=== PATIENT | female | born 1955 | race Caucasian/White ===

== ENCOUNTER 2023-12-22 15:57 | Emergency (ER) | payer MEDICARE, SELFPAY ==
[2023-12-22 16:02] VITALS: BP 136/100
[2023-12-22] MEDS: DIFLUCAN 150 MG PO (17:40)
--- NOTE | 2023-12-22 23:05 | ED.GENMED ---
History of Present Illness
General
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
Source: patient
Exam Limitations: none
Time Seen by Provider: 12/22/23 16:20
Nursing documentation reviewed up to this point in time: agreed with
Travel History
Have you had any contact with someone who has COVID-19?: No
Do you have any symptoms of coronavirus? Fever > 100 degrees, chills, cough, shortness of breath, sore throat, loss of taste or smell, muscle aches, or headache?: No
History of Present Illness
History of Present Illness:
Patient to ED with complaint of vaginal discharge, itching and burning. Brought self to ED for eval.
Past History
Past History
ED Past Medical History: Cancer (Thyroid), IDDM, Psychiatric (Anxiety, depression) and Other (Pancreatitis)
ED Past Surgical History: Cholecystectomy and Other (Breast augmentation)
Social History
Tobacco: Non-smoker
Alcohol: Occasional
Drug: None
Living: with family
Employment: Employed
Family History
Family History: Hypertension
Review of Systems
Review of Systems
Allergies reviewed?: Yes
All Other Systems: ROS reviewed and negative except as documented in HPI and ROS
Constitutional: Reports no symptoms
EENT: Reports no symptoms
Respiratory: Reports no symptoms
Cardiac: Reports no symptoms
ABD/GI: Reports no symptoms
: Reports discharge
Musculoskeletal: Reports no symptoms
Skin: Reports no symptoms
Neurological: Reports no symptoms
Psychiatric: Reports no symptoms
Phy Exam
General Physical Exam
General Presentation: well appearing and no apparent distress
General age: appears stated age
General Skin: warm and dry
General Habitus: normal
General Mental: alert
General Hydration: appears well hydrated
Gastrointestinal Exam
Gastrointestinal Exam: normal bowel sounds, non tender, soft and no organomegaly
Genitourinary Exam Female
Exam Female: no bleeding, no CMT, no lesions, no mass and vaginal discharge
Vaginal Exam: normal
Vaginal Bleeding: none
Vaginal Discharge: creamy
Visual exam of cervix: os closed
Musculoskeletal Exam
Musculoskeletal Exam: full ROM and neuro vasc intact
Skin Exam
Skin Exam: normal color and warm/dry
Psychiatric Exam
Psychiatric Exam: normal mood/affect
Course
Orders/Labs/Results
Orders:
Orders
12/22/23 17:32
Fluconazole [Diflucan] 150 mg PO NOW STA
12/22/23 17:36
Genital Culture Urgent
IZZY Source: Vagina
Specimen Description:
Date Specimen was Collected: 12/22/23
Time Specimen was Collected: 17:29
Vital Signs
Initial and Last Documented VS:
Initial Vital Signs
Temp Pulse Resp BP Pulse Ox
99.0 F 111 17 136/100 99
12/22/23 16:02 12/22/23 16:02 12/22/23 16:02 12/22/23 16:02 12/22/23 16:02
Last Documented Vital Signs
Temp Pulse Resp BP Pulse Ox
99.0 F 111 17 136/100 99
12/22/23 16:02 12/22/23 16:02 12/22/23 16:02 12/22/23 16:02 12/22/23 16:02
*Critical Care Note
Total Time (30-74mins, 75-104mins- exclusive of procedures): Not Applicable
Update Note
Update Note:
Suspect yeast infection. Given dose of diflucan in dept, will repeat in 3 days. 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 Given instructions for s/s to return to ED
ED Attending Note
-
Portions of this chart may have been created with voice recognition software.� Occasional wrong word or��sound alike� substitutions may have occurred due to the inherent limitations of voice recognition software.
Discharge Plan
Departure
Patient Disposition: Home (Routine Discharge)
Date of Disposition: 12/22/23
Time of Disposition: 17:07
Patient with high blood pressure during this ER visit?: No
Condition: Good
Covid-19: Not Applicable
Discharge Problem:
Candidiasis of vagina
Instructions: Yeast Infection (DC)
Prescriptions:
New
fluconazole 150 mg tablet
150 mg PO Q3D Qty: 1 0RF
No Action
cyclobenzaprine 10 mg tablet
10 mg PO Q8H PRN (Reason: muscle spasms)
clonazepam 0.5 mg tablet
1 mg PO HS
Patient Comments:
05/02/2023: last filled 04/04/23, 60 tabs for 30 days from
Rx Instructions:
Prescribed as '0.5mg BID prn'
hydrocodone-acetaminophen 10-325 mg tablet
2 tab PO BID
Patient Comments:
05/02/2023: last filled 04/23/23, 120 tabs for 30 days from [facility]
Rx Instructions:
Prescribed as 'take 1 tab q6h prn'
liothyronine 5 mcg tablet
5 mcg PO DAILY
levothyroxine 150 mcg tablet
150 mcg PO DAILY
fenofibrate 160 mg tablet
160 mg PO HS
Jardiance 25 mg tablet
25 mg PO DAILY
Linzess 72 mcg capsule
72 mcg PO DAILY
Ozempic 2 mg/dose (8 mg/3 mL) pen injector
8 mg SC ASENCIO
Referrals:
Rafaela Sims DO [Active] - Next open appointment
Interventions
Interventions:
*Risk Screen - Suicide Last Done: 12/22/23 17:28
*General Assessment Last Done: 12/22/23 17:26
*Neglect/Abuse Screening Last Done: 12/22/23 17:26
*Nursing Disposition Last Done: 12/22/23 17:42
ED-Female Genitourinary Assessment Last Done: 12/22/23 17:26
Discharge Date and Time
Discharge Date/Time: 12/22/23 17:42
Print Language: MACANESE
== END 2023-12-22 17:42 | disposition home or self-care (01) ==
LOC: EMR 15:57
PROVIDERS: EMERGENCY PHYSICIAN Emergency Medicine; FAMILY PHYSICIAN Internal Medicine
DX: B37.31 Acute candidiasis of vulva and vagina (principal)
CPT/HCPCS: 99283; 87070

== ENCOUNTER → 2024-02-12 09:44 | Outpatient (REF) | payer MEDICARE, SELFPAY | LOC: WDC 09:44 | PROVIDERS: ATTENDING PHYSICIAN Advanced Practice Midwife; FAMILY PHYSICIAN Internal Medicine | DX: N64.4 Mastodynia (principal); N63.20 Unspecified lump in the left breast, unspecified quadrant; Z85.3 Personal history of malignant neoplasm of breast; N63.11 Unspecified lump in the right breast, upper outer quadrant; N63.22 Unspecified lump in the left breast, upper inner quadrant | CPT/HCPCS: 76642; 77062; 77066 ==

== ENCOUNTER 2024-12-08 17:21 | Emergency (ER) | payer MEDICARE, SELFPAY ==
[2024-12-08 17:25] VITALS: BP 114/80
--- NOTE | 2024-12-08 19:44 | ED.GENMED ---
History of Present Illness
General
Chief Complaint: Esophageal Problem
Source: patient
Exam Limitations: none
Time Seen by Provider: 12/08/24 19:22
Nursing documentation reviewed up to this point in time: agreed with
History of Present Illness
History of Present Illness:
Patient is a 69-year-old female with history of independent diabetes, cardiac stents reflux presents to the ER for evaluation. Patient was eating rice prior to arrival and after her second bite felt like he got' stuck' in her esophagus. Patient
tried to drink a diet Coke but reports that made it worse. She is however able to drink water since. She complains of some discomfort in her epigastric area. She denies any abdominal pain or vomiting. No associated shortness of breath or actual
chest pain.
Past History
Past History
ED Past Medical History: Cancer (Thyroid), IDDM, Psychiatric (Anxiety, depression) and Other (Pancreatitis)
ED Past Surgical History: Cholecystectomy and Other (Breast augmentation)
Social History
Tobacco: Non-smoker
Alcohol: Occasional
Drug: None
Living: with family
Employment: Employed
Family History
Family History: Hypertension
Review of Systems
Review of Systems
Allergies reviewed?: Yes
All Other Systems: ROS reviewed and negative except as documented in HPI and ROS
Constitutional: Reports no symptoms
EENT: Reports no symptoms
Respiratory: Reports no symptoms
Cardiac: Reports no symptoms
ABD/GI: Reports other (+discomfort in epigastric region )
: Reports no symptoms
Musculoskeletal: Reports no symptoms
Skin: Reports no symptoms
Neurological: Reports no symptoms
Psychiatric: Reports no symptoms
Phy Exam
General Physical Exam
General Presentation: no apparent distress
General age: appears stated age
General Skin: warm and dry
General Habitus: normal
General Mental: alert
ENT Exam
ENT Exam: other (No drooling tolerating secretions well)
Cardiovascular Exam
Cardiovascular Exam: regular rate/rhythm, no murmur and normal peripheral pulses
Pulmonary Exam
Pulmonary Exam: lungs clear and no respiratory distress
Gastrointestinal Exam
Gastrointestinal Exam: non tender and soft
Neurological Exam
Neurological Exam: alert and oriented x3
Musculoskeletal Exam
Musculoskeletal Exam: full ROM
Skin Exam
Skin Exam: normal color and warm/dry
Psychiatric Exam
Psychiatric Exam: normal mood/affect
Course
Orders/Labs/Results
Orders:
Orders
12/08/24 19:44
Mag Hydrox/Al Hydrox/Simeth [Maalox] 30 ml Phenobarb/Hyoscy/Atropine/Scop [] 10 ml PO NOW
12/08/24 19:45
Electrocardiogram (*1) Stat
Reason for Study: Other
Other Reason for Exam: chest pain
EKG- Treatment ONCE
12/08/24 19:47
Mag Hydrox/Al Hydrox/Simeth [Maalox] 30 ml .ROUTE .STK-MED ONE
Phenobarb/Hyoscy/Atropine/Scop [] 10 ml .ROUTE .STK-MED ONE
12/08/24 21:51
Sucralfate Suspension [Carafate Suspension] 1 gm .ROUTE .STK-MED ONE
12/08/24 21:52
Sucralfate Suspension [Carafate Suspension] 1 gm PO NOW STA
Vital Signs
Initial and Last Documented VS:
Initial Vital Signs
Temp Pulse Resp BP Pulse Ox
98.1 F 86 20 114/80 97
12/08/24 17:25 12/08/24 17:25 12/08/24 17:25 12/08/24 17:25 12/08/24 17:25
Last Documented Vital Signs
Temp Pulse Resp BP Pulse Ox
98.1 F 82 14 112/76 99
12/08/24 17:25 12/08/24 21:16 12/08/24 21:16 12/08/24 21:16 12/08/24 21:16
Lockstitch Lining Setter consulted with Physician
Lockstitch Lining Setter consulted with physician?: Yes
Name of Physician Consulted: Unique
MDM/Problems Addressed
Differential Diagnosis Includes:
not limited to:
Esophagitis reflux less likely food bolus
MDM/Problems Addressed:
Symptoms are consistent with esophagitis. Patient describes eating rice and then felt very irritated in her esophagus epigastric region. She has been able to drink fluids and has eaten solid foods here in the ER. She initially was given a GI
cocktail however this did not seem to help as much. She was then given Carafate and expressed much relief with that. She is ready to go home and is no acute distress. Discussed soft bland diet for the next several days and then outpatient follow
family doctor and GI as needed.
*Pulse Oximetry
Patient hypoxic: no
*Critical Care Note
Total Time (30-74mins, 75-104mins- exclusive of procedures): Not Applicable
ED Attending Note
-
Portions of this chart may have been created with voice recognition software.� Occasional wrong word or��sound alike� substitutions may have occurred due to the inherent limitations of voice recognition software.
Discharge Plan
Departure
Patient Disposition: Home (Routine Discharge)
Date of Disposition: 12/08/24
Time of Disposition: 22:11
Patient with high blood pressure during this ER visit?: No
Covid-19: Not Applicable
Discharge Problem:
Esophagitis
Instructions: Clear Liquid Diet, Esophagitis
Prescriptions:
New
pantoprazole [Protonix] 40 mg tablet,delayed release (DR/EC)
40 mg PO DAILY Qty: 14 0RF
No Action
cyclobenzaprine 10 mg tablet
10 mg PO Q8H PRN (Reason: muscle spasms)
clonazepam 0.5 mg tablet
1 mg PO HS
Patient Comments:
05/02/2023: last filled 04/04/23, 60 tabs for 30 days from
Rx Instructions:
Prescribed as '0.5mg BID prn'
hydrocodone-acetaminophen 10-325 mg tablet
2 tab PO BID
Patient Comments:
05/02/2023: last filled 04/23/23, 120 tabs for 30 days from [facility]
Rx Instructions:
Prescribed as 'take 1 tab q6h prn'
liothyronine 5 mcg tablet
5 mcg PO DAILY
levothyroxine 150 mcg tablet
150 mcg PO DAILY
fenofibrate 160 mg tablet
160 mg PO HS
Jardiance 25 mg tablet
25 mg PO DAILY
Linzess 72 mcg capsule
72 mcg PO DAILY
Ozempic 2 mg/dose (8 mg/3 mL) pen injector
8 mg SC ASENCIO
fluconazole 150 mg tablet
150 mg PO Q3D Qty: 1 0RF
Referrals:
Everardo Marlow MD [Family Provider] -
Lupe Kramer DO [Active] -
Activity Restrictions/Additional Instructions:
As discussed you may try clear fluids for the next 24 hours followed by bland solid foods.
A prescription for Protonix was sent to your pharmacy. Follow-up with your family doctor the next several days and return if any worsening of symptoms
You may follow-up with GI as needed
Interventions
Interventions:
*Risk Screen - Suicide Last Done: 12/08/24 17:25
*General Assessment Last Done: 12/08/24 21:13
*Neglect/Abuse Screening Last Done: 12/08/24 21:13
*ED- Fall Risk Assessment Last Done: 12/08/24 21:13
EK-Lwipjq-Tspilaibta Assessment Last Done: 12/08/24 19:52
Discharge Date and Time
Print Language: KOREAN
[2024-12-08] MEDS: MAALOX 40 PO (19:49)
[2024-12-08 19:51] VITALS: BMI 21.3
[2024-12-08 21:16] VITALS: BP 112/76
[2024-12-08] MEDS: CARAFATE SUSPENSION 1 GM PO (21:52)
== END 2024-12-08 22:23 | disposition home or self-care (01) ==
LOC: EMR 17:21
PROVIDERS: EMERGENCY PHYSICIAN Emergency Medicine; FAMILY PHYSICIAN Internal Medicine
DX: K20.90 Esophagitis, unspecified without bleeding (principal); E11.9 Type 2 diabetes mellitus without complications; Z79.4 Long term (current) use of insulin; Z90.49 Acquired absence of other specified parts of digestive tract
CPT/HCPCS: 99283; 93005

== ENCOUNTER 2025-01-26 03:54 | Emergency (ER) | payer MEDICARE, SELFPAY ==
[2025-01-26 04:04] VITALS: BP 135/84
[2025-01-26 04:31] VITALS: BP 135/97
[2025-01-26 04:41] VITALS: BMI 23.8
--- NOTE | 2025-01-26 04:49 | ED.GENMED ---
History of Present Illness
General
Chief Complaint: Chest Pain
Source: patient
Exam Limitations: none
Time Seen by Provider: 01/26/25 04:48
History of Present Illness
History of Present Illness:
69-year-old female with a past medical history of insulin-dependent diabetes, hyperlipidemia, anxiety, depression, chronic pain from Lyme disease, presents emergency department today with concerns of intermittent left-sided chest pressure and
exertional shortness of breath. Patient reports that this started 2 weeks ago. She denies any recent long distance travel or redness or pain in her lower extremities. She reports that the pain does get worse when she takes a deep breath. She has
a distant history of thyroid and breast cancer. She never had symptoms like this before. Of note, patient reports that with her chronic pain, she takes multiple tablets of Vicodin daily and reports that her left extremity pain has gotten worse but
this is not unusual for her. She also notes upper back pain. She reports that the pain improved with lidocaine patches. She does have a history of coronary artery disease and has stents placed in the past after a cardiac MRI revealed significant
coronary disease. She never had a heart attack. She states that this pain is different than the pain she had when she had her stents placed. She denies any syncopal episodes. She denies any dizziness lightheadedness.
Past History
Past History
ED Past Medical History: Cancer (Thyroid), IDDM, Psychiatric (Anxiety, depression) and Other (Pancreatitis)
ED Past Surgical History: Cholecystectomy and Other (Breast augmentation)
Social History
Tobacco: Non-smoker
Alcohol: Occasional
Drug: None
Living: with family
Employment: Employed
Family History
Family History: Hypertension
Review of Systems
Review of Systems
All Other Systems: ROS reviewed and negative except as documented in HPI and ROS
Phy Exam
Physical Exam
Physical Exam:
General: Patient is well appearing and in no acute distress; non-toxic
Skin: Warm and dry, no rashes or lesions
Head: Normocephalic, atraumatic
Eyes: Sclera non-icteric. EOMs intact.
Cardiac: Regular rate and rhythm, mild tenderness noted to the left rib area
Peripheral Vascular: No lower extremity swelling or edema
Pulm: Normal respiratory effort, no wheezes, rales, or rhonchi
Abdomen: No abdominal tenderness to palpation
Musculoskeletal: Left-sided para thoracic tenderness noted no midline spinal tenderness, no tenderness palpation of the left upper extremity
Neuro: CN II-XII intact, no focal neurologic deficits.
Psychiatric: Appropriate mood and affect.
Scores
Heart Score for Chest Pain Patients
STEMI patient?: No
History: Slightly or Non-Suspicious
ECG: Normal
Age: >/= 65 years
Risk Factors: >/= 3 Risk Factors or History of CAD
Troponin: </= Normal Limit
Heart Score for Chest Pain Patients: 4
Heart Score Risk: 20.3% MACE over next 6 weeks
Course
Orders/Labs/Results
Orders:
Orders
01/26/25 03:55
EKG [Electrocardiogram (*1)] Urgent
Reason for Study: Chest Pain
EKG- Treatment ONCE
01/26/25 04:49
CMP [Comprehensive Metabolic Panel] Urgent
Complete Blood Count/With Diff Urgent
01/26/25 05:16
CR Chest - 2 Views Urgent
Comment:
Reason For Exam: shortness of breath, left sided chest pain
01/26/25 05:24
Lidocaine [Lidocaine 4% Patch] 1 patch TOPICAL DAILY ONE
Apply Lidocaine patch(s) to:: left upper parathoracic
01/26/25 06:29
D-Dimer Urgent
Troponin I Urgent
Abnormal Lab Results
01/26/25
04:49
WBC 3.9 L 10^3/uL
(4.8-10.8)
Hct 36.8 L %
(37.0-47.0)
MPV 10.5 H fL
(7.4-10.4)
BUN 18 H mg/dl
(7-17)
Glucose 142 H mg/dl
(70-99)
01/26/25 04:49
01/26/25 04:49
Vital Signs
Initial and Last Documented VS:
Initial Vital Signs
Temp Pulse Resp BP Pulse Ox
98.3 F 86 16 135/84 100
01/26/25 04:04 01/26/25 04:04 01/26/25 04:04 01/26/25 04:04 01/26/25 04:04
Last Documented Vital Signs
Temp Pulse Resp BP Pulse Ox
98.3 F 81 12 125/71 98
01/26/25 04:04 01/26/25 07:00 01/26/25 07:00 01/26/25 07:00 01/26/25 07:00
MDM/Problems Addressed
Differential Diagnosis Includes:
Differentials include pleurisy, costochondritis, chronic pain exacerbation, ACS, pulmonary embolism
MDM/Problems Addressed:
69-year-old female with a past medical history of insulin-dependent diabetes, hyperlipidemia, anxiety, depression, chronic pain from Lyme disease, presents emergency department today with concerns of intermittent left-sided chest pressure and
exertional shortness of breath. Patient reports that this started 2 weeks ago. The chest pain is intermittent. The pain is different from the pain she had associated with her cardiac stents. On PE, she is well appearing, in no acute distress. She
has minimal tenderness to the external chest wall. She aso complains of left sided arm pain which has been going on for weeks as well, as well has upper back pain. Her troponin is undetectable. Her D-dimer is normal. Doubt ACS.
In regards to patients arm pain and back pain, patient states that she gets full body pain from chronic lyme and she sees a pain doctor and I suspect this is order entry representative of her chronic pain. In terms of her chest pain, suspect costochondritis.
Doubt ACS. Patient is pain free at time of discharge. Patient has a follow up appointment with her licensed physical therapist assistant in a few weeks.
Patient stable for discharge.
Chronic conditions affecting care:
hlp, diabetes, htn, cad
*Pulse Oximetry
Patient hypoxic: no
*Critical Care Note
Total Time (30-74mins, 75-104mins- exclusive of procedures): Not Applicable
Data Reviewed
Review of Other/Old Records Reveals: Records (Reviewed ER physician documentation from 12/08/2024 patient seen for esophagitis, no discharge summaries in [facility] to review)
Source: patient and records
ED Attending Note
-
Portions of this chart may have been created with voice recognition software.� Occasional wrong word or��sound alike� substitutions may have occurred due to the inherent limitations of voice recognition software.
Discharge Plan
Departure
Patient Disposition: Home (Routine Discharge)
Date of Disposition: 01/26/25
Time of Disposition: 07:21
Patient with high blood pressure during this ER visit?: No
Condition: Good
Discharge Problem:
Atypical chest pain
Instructions: BLOOD PRESSURE, Chest Pain
Prescriptions:
No Action
cyclobenzaprine 10 mg tablet
10 mg PO Q8H PRN (Reason: muscle spasms)
clonazepam 0.5 mg tablet
1 mg PO HS
Patient Comments:
05/02/2023: last filled 04/04/23, 60 tabs for 30 days from
Rx Instructions:
Prescribed as '0.5mg BID prn'
hydrocodone-acetaminophen 10-325 mg tablet
2 tab PO BID
Patient Comments:
05/02/2023: last filled 04/23/23, 120 tabs for 30 days from [facility]
Rx Instructions:
Prescribed as 'take 1 tab q6h prn'
liothyronine 5 mcg tablet
5 mcg PO DAILY
levothyroxine 150 mcg tablet
150 mcg PO DAILY
fenofibrate 160 mg tablet
160 mg PO HS
Jardiance 25 mg tablet
25 mg PO DAILY
Linzess 72 mcg capsule
72 mcg PO DAILY
Ozempic 2 mg/dose (8 mg/3 mL) pen injector
8 mg SC ASENCIO
fluconazole 150 mg tablet
150 mg PO Q3D Qty: 1 0RF
pantoprazole [Protonix] 40 mg tablet,delayed release (DR/EC)
40 mg PO DAILY Qty: 14 0RF
Referrals:
Boyd Salgado DO [Family Provider, Internal Medicine]
Activity Restrictions/Additional Instructions:
Your D-dimer is normal. Your troponin is undetectable.
Please follow-up with your scheduled cardiology appointment.
PLEASE RETURN TO THE EMERGENCY DEPARTMENT SHOULD YOU DEVELOP ANY ACUTE WORSENING OF YOUR SYMPTOMS, RETURN OF YOUR CHEST PAIN, LIGHTHEADEDNESS, DIZZINESS, FAINTING SPELLS, DIFFICULTY SPEAKING, FACIAL DROOP, SPEECH DIFFICULTIES, OR ANY OTHER SIGNS OR
SYMPTOMS WORRISOME TO YOU.
Interventions
Interventions:
*Risk Screen - Suicide Last Done: 01/26/25 04:04
*General Assessment Last Done: 01/26/25 04:43
*Neglect/Abuse Screening Last Done: 01/26/25 06:41
*ED- Fall Risk Assessment Last Done: 01/26/25 04:43
*ED COVID-19 Vaccine History Last Done: 01/26/25 04:43
*Nursing Disposition Last Done: 01/26/25 07:38
ED- Cardiac Assessment Last Done: 01/26/25 04:39
Discharge Date and Time
Discharge Date/Time: 01/26/25 07:44
Print Language: SWEDISH
[2025-01-26 04:59] LABS: % Eosinophils 2.8 % (0-6); % Immature Granulocytes 0.3 % (0-0.5); % Lymphocytes 40.9 % (20.5-51.1); % Monocytes 7.7 % (1.7-9.3); % Neutrophils 47.3 % (42.2-75.2); Absolute Eosinophils 0.1 10^3/uL (0-0.7); Absolute Lymphocytes 1.6 10^3/uL (1.2-3.4); Absolute Monocytes 0.3 10^3/uL (0.1-0.6); Absolute Neutrophils 1.8 10^3/uL (1.4-6.5); Hematocrit 36.8 % (37.0-47.0); Hemoglobin 13.1 g/dL (12.0-16.0); Mean Corp Hgb Conc. 35.6 g/dL (33.0-37.0); Mean Corpuscular Hgb 30.3 pg (27.0-31.0); Mean Corpuscular Volume 85.2 fL (81.0-99.0); Mean Platelet Volume 10.5 fL (7.4-10.4); Nucleated Red Blood Cells % 0 %; Platelet Count 252 10^3/uL (130-400); Red Blood Cell Count 4.32 10^6/uL (4.20-5.40); Red Cell Dist. Width 12.7 % (11.5-14.5); White Blood Cell Count 3.9 10^3/uL (4.8-10.8)
[2025-01-26 05:00] VITALS: BP 126/80
[2025-01-26 05:15] LABS: ALT (SGPT) 16 U/L (0-35); AST (SGOT) 19 U/L (14-36); Albumin 4.6 g/dl (3.5-5.0); Alkaline Phosphatase 71 U/L (38-126); Blood Urea Nitrogen 18 mg/dl (7-17); Calcium 9.5 mg/dl (8.4-10.2); Carbon Dioxide 28 mmol/L (22-30); Chloride 105 mmol/L (98-107); Estimated Creatinine Clearance 57 ml/min; Glucose 142 mg/dl (70-99); Sodium 140 mmol/L (135-145); Total Bilirubin 0.9 mg/dl (0.2-1.3); Total Protein 7.1 g/dl (6.3-8.2); eGFR > 60.00
[2025-01-26] MEDS: LIDOCAINE 4% PATCH 1 PATCH TOPICAL (06:24)
[2025-01-26 06:33] VITALS: BP 147/79
[2025-01-26 07:00] VITALS: BP 125/71
[2025-01-26 07:00] LABS: D-Dimer 0.35 ug/mlFEU (0.00-0.50)
[2025-01-26 07:17] LABS: Troponin I < 0.012 ng/ml
== END 2025-01-26 07:44 | disposition home or self-care (01) ==
LOC: EMR 03:54
PROVIDERS: Physician Assistant; EMERGENCY PHYSICIAN Emergency Medicine; FAMILY PHYSICIAN Internal Medicine
DX: R07.89 Other chest pain (principal); E11.9 Type 2 diabetes mellitus without complications; E78.5 Hyperlipidemia, unspecified; I10 Essential (primary) hypertension; I25.10 Atherosclerotic heart disease of native coronary artery without angina pectoris; Z95.5 Presence of coronary angioplasty implant and graft; Z85.3 Personal history of malignant neoplasm of breast; Z85.850 Personal history of malignant neoplasm of thyroid
CPT/HCPCS: 99285; 71046; 80053; 84484; 85025; 85379; 93005

== ENCOUNTER 2025-02-10 10:31 | Emergency (ER) | payer MEDICARE, SELFPAY ==
[2025-02-10 10:34] VITALS: BP 118/71
--- NOTE | 2025-02-10 11:10 | ED.GENMED ---
History of Present Illness
General
Chief Complaint: Fall
Source: patient
Time Seen by Provider: 02/10/25 10:50
History of Present Illness
History of Present Illness:
69-year-old female presents to the emergency room complaining of forgetfulness, paresthesias in her upper extremities. Patient had a fall couple days ago. She was walking down steps when she tripped and she fell into the drywall. She struck the
front of her head. Unclear if she had a loss of consciousness. She was noted some abrasions to her right knee and pain in the upper extremities as well as her left foot. She was evaluated at [facility] where she had imaging that was
evidently unremarkable. Patient has been contacted by her primary care doctor a couple times to check on her. During her conversation today with the nurse at her doctor's office she was noted to be forgetful and not remember previous
conversations. She relayed to the nurse that she was having paresthesias in her upper extremities. She was therefore instructed to call [phone] and come to the emergency room for further evaluation. Patient denies any weakness in her upper
extremities. She denies any symptoms of weakness numbness or tingling in her lower extremities. She does not have any nausea or vomiting. She does have a headache. She does not take any oral anticoagulants.
Past History
Past History
ED Past Medical History: Cancer (Thyroid), IDDM, Psychiatric (Anxiety, depression) and Other (Pancreatitis)
ED Past Surgical History: Cholecystectomy and Other (Breast augmentation)
Social History
Tobacco: Non-smoker
Alcohol: Occasional
Drug: None
Living: with family
Employment: Employed
Family History
Family History: Hypertension
Phy Exam
Physical Exam
Physical Exam:
General: Awake, Alert, Oriented X3. No acute distress.
Vitals: unremarkable
Head: Atraumatic, small frontal contusion
Eyes: Pupils equal, EOMI
Throat: Airway intact, no exudates
Neck: Trachea midline, no midline tenderness to palpation of the cervical spine, no pain with loading or range of motion
Lungs: Clear and equal b/l
Heart: Regular rate, no murmurs
Abd: Soft, Nontender, No pulsatile mass
Neuro: Cranial nerves intact, muscle strength equal bilaterally, cerebellar exam normal, sensation intact
Skin: Warm, dry, no rash
Extremities: pulses equal b/l, no edema
Course
Orders/Labs/Results
Orders:
Orders
02/10/25 10:45
CT Head W/o Iv Contrast Urgent
Comment: Fall on Saturday
Reason For Exam: head injury w/memory issues + tingling naseem hands
02/10/25 11:09
CT Cervical Spine W/o Iv Contr Urgent
Comment:
Reason For Exam: neck pain s/p fall
02/10/25 11:12
Foot, Left 3 View [CR Foot - Left Min 3 Views] Urgent
Comment:
Reason For Exam: pain after fall
02/10/25 11:19
Basic Metabolic Panel Urgent
Complete Blood Count/With Diff Urgent
Free T4 Urgent
Magnesium Urgent
Phos [Phosphorus] Urgent
TSH Reflex To Free T4 Urgent
Abnormal Lab Results
02/10/25
11:19
WBC 3.2 L 10^3/uL
(4.8-10.8)
RBC 3.80 L 10^6/uL
(4.20-5.40)
Hgb 11.1 L g/dL
(12.0-16.0)
Hct 32.2 L %
(37.0-47.0)
Monocytes % 10.8 H %
(1.7-9.3)
Glucose 121 H mg/dl
(70-99)
TSH (Reflex) 0.02 L uIU/ml
(0.47-4.68)
Free T4 2.20 H ng/dl
(0.78-2.19)
02/10/25 11:19
02/10/25 11:19
Vital Signs
Initial and Last Documented VS:
Initial Vital Signs
Temp Pulse Resp BP Pulse Ox
98.2 F 95 16 118/71 98
02/10/25 10:34 02/10/25 10:34 02/10/25 10:34 02/10/25 10:34 02/10/25 10:34
Last Documented Vital Signs
Temp Pulse Resp BP Pulse Ox
98.2 F 89 25 108/62 99
02/10/25 10:34 02/10/25 13:30 02/10/25 13:15 02/10/25 13:00 02/10/25 13:15
MDM/Problems Addressed
Differential Diagnosis Includes:
Concussion, subdural, cervical spine injury
MDM/Problems Addressed:
Imaging shows no no acute abnormality.
*Radiology
Radiology exam reviewed: radiology read reviewed
*Pulse Oximetry
SaO2: 98
Oxygen Mode of Delivery: Room air
*Critical Care Note
Total Time (30-74mins, 75-104mins- exclusive of procedures): Not Applicable
ED Attending Note
-
Portions of this chart may have been created with voice recognition software.� Occasional wrong word or��sound alike� substitutions may have occurred due to the inherent limitations of voice recognition software.
Discharge Plan
Departure
Patient Disposition: Home (Routine Discharge)
Date of Disposition: 02/10/25
Time of Disposition: 13:36
Patient with high blood pressure during this ER visit?: No
Condition: Good
Discharge Problem:
Head injury, Concussion, Sprain of toe
Instructions: Concussion, Adult (DC)
Prescriptions:
No Action
cyclobenzaprine 10 mg tablet
10 mg PO Q8H PRN (Reason: muscle spasms)
clonazepam 0.5 mg tablet
1 mg PO HS
Patient Comments:
05/02/2023: last filled 04/04/23, 60 tabs for 30 days from
Rx Instructions:
Prescribed as '0.5mg BID prn'
hydrocodone-acetaminophen 10-325 mg tablet
2 tab PO BID
Patient Comments:
05/02/2023: last filled 04/23/23, 120 tabs for 30 days from [facility]
Rx Instructions:
Prescribed as 'take 1 tab q6h prn'
liothyronine 5 mcg tablet
5 mcg PO DAILY
levothyroxine 150 mcg tablet
150 mcg PO DAILY
fenofibrate 160 mg tablet
160 mg PO HS
Jardiance 25 mg tablet
25 mg PO DAILY
Linzess 72 mcg capsule
72 mcg PO DAILY
Ozempic 2 mg/dose (8 mg/3 mL) pen injector
8 mg SC ASENCIO
fluconazole 150 mg tablet
150 mg PO Q3D Qty: 1 0RF
pantoprazole [Protonix] 40 mg tablet,delayed release (DR/EC)
40 mg PO DAILY Qty: 14 0RF
Referrals:
Everardo Marlow MD [Family Provider, Internal Medicine]
Interventions
Interventions:
*Risk Screen - Suicide Last Done: 02/10/25 11:26
*General Assessment Last Done: 02/10/25 11:26
*Neglect/Abuse Screening Last Done: 02/10/25 11:26
*ED- Fall Risk Assessment Last Done: 02/10/25 11:26
*ED COVID-19 Vaccine History Last Done: 02/10/25 11:26
*Nursing Disposition Last Done: 02/10/25 14:12
ED-Musculoskeletal Assessment Last Done: 02/10/25 11:26
ED- Neurological Assessment Last Done: 02/10/25 11:26
ED-Skin Assessment Last Done: 02/10/25 11:26
Discharge Date and Time
Discharge Date/Time: 02/10/25 14:13
Print Language: POLISH
[2025-02-10 11:22] VITALS: BP 107/68
[2025-02-10 11:30] LABS: % Basophils 0.9 % (0-2); % Eosinophils 2.8 % (0-6); % Immature Granulocytes 0.3 % (0-0.5); % Lymphocytes 41.5 % (20.5-51.1); % Monocytes 10.8 % (1.7-9.3); % Neutrophils 43.7 % (42.2-75.2); Absolute Eosinophils 0.1 10^3/uL (0-0.7); Absolute Lymphocytes 1.3 10^3/uL (1.2-3.4); Absolute Monocytes 0.3 10^3/uL (0.1-0.6); Absolute Neutrophils 1.4 10^3/uL (1.4-6.5); Hematocrit 32.2 % (37.0-47.0); Hemoglobin 11.1 g/dL (12.0-16.0); Mean Corp Hgb Conc. 34.5 g/dL (33.0-37.0); Mean Corpuscular Hgb 29.2 pg (27.0-31.0); Mean Corpuscular Volume 84.7 fL (81.0-99.0); Nucleated Red Blood Cells % 0 %; Platelet Count 191 10^3/uL (130-400); Red Cell Dist. Width 12.6 % (11.5-14.5); White Blood Cell Count 3.2 10^3/uL (4.8-10.8)
[2025-02-10 11:46] LABS: Blood Urea Nitrogen 14 mg/dl (7-17); Calcium 8.9 mg/dl (8.4-10.2); Carbon Dioxide 25 mmol/L (22-30); Chloride 107 mmol/L (98-107); Glucose 121 mg/dl (70-99); Magnesium 1.8 mg/dl (1.6-2.3); Phosphorus 4.5 mg/dl (2.5-4.5); Potassium 3.8 mmol/L (3.5-5.1); Sodium 139 mmol/L (135-145); eGFR > 60.00
[2025-02-10 12:15] LABS: TSH Reflex To Free T4 0.02 uIU/ml (0.47-4.68)
[2025-02-10 12:53] VITALS: BP 108/63
[2025-02-10 13:00] VITALS: BP 108/62
== END 2025-02-10 14:13 | disposition home or self-care (01) ==
LOC: EMR 10:31
PROVIDERS: EMERGENCY PHYSICIAN Emergency Medicine; FAMILY PHYSICIAN Internal Medicine; OTHER PHYSICIAN Internal Medicine
DX: S06.0XAA Concussion with loss of consciousness status unknown, initial encounter (principal); S93.509A Unspecified sprain of unspecified toe(s), initial encounter; S80.211A Abrasion, right knee, initial encounter; W01.0XXA Fall on same level from slipping, tripping and stumbling without subsequent striking against object, initial encounter; Y93.01 Activity, walking, marching and hiking; R20.2 Paresthesia of skin; E11.9 Type 2 diabetes mellitus without complications; F41.9 Anxiety disorder, unspecified; Z82.49 Family history of ischemic heart disease and other diseases of the circulatory system; Z90.49 Acquired absence of other specified parts of digestive tract
CPT/HCPCS: 99284; 70450; 72125; 73630; 80048; 83735; 84100; 84439; 84443; 85025